=== PATIENT | male | born 1940 | race Caucasian/White ===

== ENCOUNTER 2017-05-03 12:05 | Inpatient (IN) ==
[2017-05-03] MEDS ORDERED: Ipratropium/Albuterol Neb 3 ML IH ONE (12:43)
--- NOTE | 2017-05-03 12:47 | Emergency Department Note ---
Disposition Clinical Impression: Dyspnea Qualifiers: Dyspnea type: unspecified Qualified Code(s): R06.00 - Dyspnea, unspecified Dementia Qualifiers: Dementia type: unspecified type Dementia behavioral disturbance: without behavioral disturbance Qualified Code(s): F03.90 - Unspecified dementia without behavioral disturbance Disposition: Admitted As Inpatient Condition: Fair [facility]errals: [facility] [Primary Care Provider] - Forms: ED Satisfaction Letter Time of Disposition: 15:15 SOB HPI - General Chief Complaint: ED Shortness of Breath/Dyspnea Stated Complaint: SOB Time Seen by Provider: 05/03/17 12:29 Source: patient, EMS Limitations: altered mental status Nursing Notes Reviewed: Yes Vital Signs Reviewed: Yes - History of Present Illness An elderly gentleman unclear of his exact age although he reports a birthday making him 77 years old who comes in with increasing confusion and inability to communicate effectively. Patient apparently lived with his girlfriend at the [place] and she says she is getting too much to handle. Here he has no localizing neurologic signs but has difficulty initiating his speech making intelligible conversation. Pt Subjective Complaint: shortness of breath Onset (ago): Just SENIOR SUSTAINABILITY ADVISOR Severity: mild, moderate Consistency/Duration: constant Improves with: nothing Worsens with: nothing Known history of: COPD Associated symptoms: Reports: denies other symptoms Treatment prior to arrival: none - Related Data Allergies Allergy/AdvReac Type Severity Reaction Status Date / Time metformin AdvReac See Verified 05/03/17 12:06 Comments Limitations: ROS unobtainable due to patients medical condition Past Medical History - Past Medical History Medical history: Reports: GERD, hyperlipidemia, hypertension Psychiatric history: Reports: depression - Social History Smoking Status: Unknown if ever smoked Smokeless Tobacco Status: No Alcohol use: Reports: unknown Drug use: Reports: unknown Physical Exam - General Limitations: altered mental status General appearance: alert, in no apparent distress - Head Head exam: atraumatic, normocephalic, normal inspection - Eye Eye exam: Present: normal appearance, PERRL, EOMI - ENT ENT exam: normal exam, normal oropharynx, mucous membranes moist - Neck Neck exam: Present: normal inspection, full ROM, trachea midline - Chest Chest inspection: Present: normal inspection, symmetric chest wall rise - Respiratory Respiratory exam: Present: normal lung sounds bilaterally - Cardiovascular Cardiovascular exam: Present: regular rate, normal rhythm, normal heart sounds - Abdominal Exam Abdominal exam: Present: soft, Non-Tender. Absent: tenderness, distention, guarding, rebound, rigidity - Extremities Exam Extremities exam: Present: normal inspection, full ROM. Absent: tenderness, pedal edema - Expanded Lower Extremity Exam Neurovascular/Tendon exam: Absent: motor deficit, sensory deficit, tendon deficit Gait: not tested/not observed - Back Exam Back exam: Present: normal inspection, full ROM. Absent: tenderness - Neurological Exam Neurological exam: Present: alert, other. Absent: motor sensory deficit - Psychiatric Psychiatric exam: Present: normal affect, normal mood - Skin Skin exam: Present: warm, dry, intact, normal color Course - Reevaluation(s) Reevaluation #1: 77-year-old comes in with the complaint of shortness of breath however the patient is unable to tell us anything he appears to have some significant dementia. Workup here is negative he doesn't appear safe to be discharged. Will be admitted for further evaluation social service technician consult and neurology consult. Time: 15:04 - Consultations Consultation #1: Discussed with , admit. Time: 15:05 Vital Signs Temperature 98.1 F 05/03/17 12:11 Pulse Rate 62 05/03/17 12:11 Respiratory Rate 20 05/03/17 12:11 Blood Pressure 112/62 05/03/17 12:11 O2 Sat by Pulse Oximetry 98 05/03/17 12:11 Temperature 98.1 F 05/03/17 12:11 Pulse Rate 62 05/03/17 14:25 Respiratory Rate 18 05/03/17 14:25 Blood Pressure 142/88 05/03/17 13:36 O2 Sat by Pulse Oximetry 97 05/03/17 14:25 Oxygen Delivery Oxygen Delivery Room Air Shortness of Breath/Dyspnea - Lab Data Result diagrams: 05/03/17 13:00 05/03/17 13:00 Lab Results 05/03/17 05/03/17 05/03/17 Range/Units 13:00 13:00 13:00 WBC 8.2 (4.3-11.1) K/mcL RBC 4.11 L (4.19-5.50) M/mcL Hgb 12.3 L (12.9-16.9) g/dL Hct 36.4 L (37.5-50.1) % MCV 88.6 (83.0-100.0) fL MCH 29.9 (28.0-33.3) pg MCHC 33.8 (31.6-35.5) g/dL RDW 15.2 H (11.5-14.5) % Plt Count 192 (140-400) K/mcL MPV 10.3 (9.4-12.4) fL Immature Gran % 0.2 (0-4) % Seg Neutrophils % 55.5 % Lymphocytes % 30.3 % Monocytes % 6.4 % Eosinophils % 6.6 % Basophils % 1.0 % Neutrophils # 4.6 (1.6-8.9) K/mcL Lymphocytes # 2.5 (0.6-4.6) K/mcL Monocytes # 0.5 (0.0-1.3) K/mcL Eosinophils # 0.5 (0.0-0.6) K/mcL Basophils # 0.1 (0.0-0.2) K/mcL Immature Plt Fraction 3.2 (1.1-6.1) % Sodium 136 (136-145) mEq/L Potassium 3.9 (3.5-4.5) mEq/L Chloride 105 (98-109) mEq/L Carbon Dioxide 24 (19-29) mEq/L BUN 22 (8-26) mg/dL Creatinine 1.28 H (0.72-1.25) mg/dL Est GFR ( Amer) > 60 (> 60) Est GFR (Non-Af Amer) 55 L (> 60) BUN/Creatinine Ratio 17 (6-26) Glucose 90 (70-99) mg/dL Calculated Osmolality 285 (280-300) Lactic Acid 1.0 (0.5-2.2) mmol/L Calcium 9.3 (8.6-10.8) mg/dL Troponin I (0-0.03) ng/mL B-Natriuretic Peptide (0-100) pg/mL 05/03/17 05/03/17 Range/Units 13:00 13:00 WBC (4.3-11.1) K/mcL RBC (4.19-5.50) M/mcL Hgb (12.9-16.9) g/dL Hct (37.5-50.1) % MCV (83.0-100.0) fL MCH (28.0-33.3) pg MCHC (31.6-35.5) g/dL RDW (11.5-14.5) % Plt Count (140-400) K/mcL MPV (9.4-12.4) fL Immature Gran % (0-4) % Seg Neutrophils % % Lymphocytes % % Monocytes % % Eosinophils % % Basophils % % Neutrophils # (1.6-8.9) K/mcL Lymphocytes # (0.6-4.6) K/mcL Monocytes # (0.0-1.3) K/mcL Eosinophils # (0.0-0.6) K/mcL Basophils # (0.0-0.2) K/mcL Immature Plt Fraction (1.1-6.1) % Sodium (136-145) mEq/L Potassium (3.5-4.5) mEq/L Chloride (98-109) mEq/L Carbon Dioxide (19-29) mEq/L BUN (8-26) mg/dL Creatinine (0.72-1.25) mg/dL Est GFR ( Amer) (> 60) Est GFR (Non-Af Amer) (> 60) BUN/Creatinine Ratio (6-26) Glucose (70-99) mg/dL Calculated Osmolality (280-300) Lactic Acid (0.5-2.2) mmol/L Calcium (8.6-10.8) mg/dL Troponin I 0.00 (0-0.03) ng/mL B-Natriuretic Peptide 82 (0-100) pg/mL - EKG Data EKG attestation: Yes I reviewed and interpreted this EKG. EKG shows normal: Reports: sinus rhythm Rate: Reports: tachycardia Rhythm: Reports: NSR Interpretation: Reports: no acute changes NIH Stroke Scale - Level of Consciousness LOC: Alert - LOC Questions LOC Questions: Answers both incorrectly - LOC Commands LOC Commands: Performs both incorrectly - Best Gaze Best Gaze: Normal - Visual Visual: No visual loss - Facial Palsy Facial Palsy: Normal - Motor Arms Motor Arm-Left: No drift for 10 seconds Motor Arm-Right: No drift for 10 seconds - Motor Legs Motor Leg-Left: No drift for 5 seconds Motor Leg-Right: No drift for 5 seconds - Limb Ataxia Limb Ataxia: Normal, No Ataxia - Sensory Sensory: Normal - Best Language Best Language: No aphasia - Dysarthria Dysarthria: Normal - Extinction and Inattention Extinction and Inattention: Normal - NIHSS Total Score NIHSS Total Score: 4
[2017-05-03 13:25] LABS: Basophils # 0.1 K/mcL (0.0-0.2); Eosinophils # 0.5 K/mcL (0.0-0.6); Eosinophils % 6.6 %; Hematocrit 36.4 % (37.5-50.1); Hemoglobin 12.3 g/dL (12.9-16.9); Immature Granulocytes % 0.2 % (0-4); Immature Platelets 3.2 % (1.1-6.1); Lymphocytes # 2.5 K/mcL (0.6-4.6); Lymphocytes % 30.3 %; Mean Corpuscular HGB Conc 33.8 g/dL (31.6-35.5); Mean Corpuscular Hemoglobin 29.9 pg (28.0-33.3); Mean Corpuscular Volume 88.6 fL (83.0-100.0); Mean Platelet Volume 10.3 fL (9.4-12.4); Monocytes # 0.5 K/mcL (0.0-1.3); Monocytes % 6.4 %; Neutrophils # 4.6 K/mcL (1.6-8.9); Platelet Count 192 K/mcL (140-400); Red Blood Count 4.11 M/mcL (4.19-5.50); Red Cell Distribution Width 15.2 % (11.5-14.5); Segmented Neutrophils % 55.5 %
[2017-05-03 13:33] LABS: BUN/Creatinine Ratio 17 (6-26); Blood Urea Nitrogen 22 mg/dL (8-26); Calcium 9.3 mg/dL (8.6-10.8); Carbon Dioxide 24 mEq/L (19-29); Chloride 105 mEq/L (98-109); Glucose 90 mg/dL (70-99); Osmolality,Calculated 285 (280-300); Potassium 3.9 mEq/L (3.5-4.5); Sodium 136 mEq/L (136-145); eGFR For African Americans > 60 (> 60); eGFR For Non-African Americans 55 (> 60)
[2017-05-03 15:39] LABS: Bilirubin,Urine Negative (Negative); Blood,Urine Negative (Negative); Clarity,Urine Clear (Clear); Color,Urine Yellow (Yellow); Glucose,Urine (UA) Normal (Normal); Ketones,Urine Negative (Negative); Leukocyte Esterase,Urine Negative (Negative); Nitrite,Urine Negative (Negative); PH,Urine 7.5 pH Units (5.0-8.0); Protein,Urine Negative (Neg-Trace); Urobilinogen,Urine Normal (Normal)
[2017-05-03] MEDS ORDERED: Naloxone 0.4 MG/ML INJ IVP PRN (16:13)
[2017-05-03] MEDS ORDERED: Acetaminophen 325 MG TABLET PO PRN (16:13)
--- NOTE | 2017-05-03 16:29 | Internal Med History&Physical ---
<Delia Griffiths J - Last Filed: 05/03/17 16:36> Date of Encounter: 05/03/17 Time of Encounter: 16:29 Assessment and Plan (1) Dyspnea Current visit: Yes Status: Acute With reported complaints of shortness of breath on morning of admission. Details unclear in no distress apparent. Chest x-ray with interstitial changes suggesting possible bronchiolitis, with superimposed COPD, or possible edema. No evidence of COPD exacerbation on exam adequately oxygenating on room air. No distress apparent. Afebrile, no elevated to WBC. Hold off on on ATB, steroids at this time. Chest CT without contrast to further evaluate. Qualifiers: Dyspnea type: unspecified Qualified Code(s): R06.00 - Dyspnea, unspecified (2) Dementia Current visit: Yes Status: Acute Per history. Baseline mental status unknown. Apparently lives with girlfriend who is full-time caregiver, and she is unable to care for patient due to worsening confusion. No family or significant other at bedside. Alert to self only, pleasantly confused. Head CT negative, UA negative. No obvious infectious or metabolic abnormalities. Suspect disease progression. Continue home Aricept, consult social work for likely SNF placement Qualifiers: Dementia type: unspecified type Dementia behavioral disturbance: without behavioral disturbance Qualified Code(s): F03.90 - Unspecified dementia without behavioral disturbance (3) COPD (chronic obstructive pulmonary disease) Current visit: Yes Status: Acute Per history. No evidence of exacerbation on exam. No indication for steroids or ATB. Continue home inhalers. Qualifiers: COPD type: unspecified COPD Qualified Code(s): J44.9 - Chronic obstructive pulmonary disease, unspecified (4) CAD (coronary artery disease) Current visit: Yes Status: Acute Per history. Asymptomatic, denies chest pain. Continue home ASA statin and beta kirstin. Qualifiers: Coronary Disease-Associated Artery/Lesion type: [place] artery [place] vs. transplanted heart: [place] heart Associated angina: without angina Qualified Code(s): I25.10 - Atherosclerotic heart disease of [place] coronary artery without angina pectoris (5) DVT prophylaxis Current visit: Yes Status: Acute Heparin Internal Medicine - H&P: HPI Chief complaint: shortness of breath Admitted From: Home Plans for Post Hospital Care: Transfer Alf Facility History of present illness: Mr. Galindo is a 77 year old male with past medical history CAD, COPD and dementia who presented to [facility] on 05/03/2017 with reported shortness of breath and increased confusion. He was admitted for further workup treatment and likely SNF placement. Information obtained from chart review in ED notes only as patient has severe dementia and is oriented to self only, no family her significant other at bedside. Per ED notes patient lives with girlfriend who is his caregiver and reportedly complained of shortness of breath this morning and therefore she called the EMS. He was taken to the [facility] and then subsequently transferred to [place]. Patient apparently is more confused and louise is unable to care for him. Unable to obtain review of systems or subjective information due to severe dementia Past Med Surg Social Fam HX - Past Medical History Medical history: GERD, hyperlipidemia, hypertension Psychiatric history: depression - Past Surgical History Surgical History: non-contributory (Unable to obtain past surgical history as patient has severe dementia, no family at bedside) - Social History Smoking Status: Unknown if ever smoked Smokeless Tobacco Status: No Alcohol use: unknown Drug use: unknown - Additional Family History Additional family history: Family history unknown as patient has severe dementia and no family at bedside Internal Medicine - H&P: Meds Aspirin Enteric Coated [Aspirin EC] 81 mg PO DAILY 05/03/17 [History] Atorvastatin [Lipitor] 40 mg PO HS 05/03/17 [History] Carbamide Peroxide [Ear Drops] 2 drop BOTH EARS DAILY PRN 05/03/17 [History] Carvedilol [Coreg] 6.25 mg PO BIDWM 05/03/17 [History] Donepezil [Aricept] 10 mg PO HS 05/03/17 [History] Ergocalciferol (VITAMIN D2) [Vitamin D2] 50,000 unit PO QWEEK 05/03/17 [History] Ipratropium/Albuterol Neb [Duoneb] 3 ml IH Q6H 05/03/17 [History] Ipratropium/Albuterol Sulfate [Combivent Respimat Inhal [place]] 1 puff IH QID [History] Omeprazole [PriLOSEC] 40 mg PO DAILY 05/03/17 [History] Psyllium Husk (with Sugar) [Konsyl Psyllium Fiber Packet] 3.4 gm PO DAILY PRN [History] Sertraline [Zoloft] 50 mg PO DAILY 05/03/17 [History] traZODone [TraZODone] 50 mg PO HS 05/03/17 [History] Allergies metformin Adverse Reaction (Verified 05/03/17 12:06) See Comments ROS unobtainable: due to mental status All Systems PM: A 10-system review of systems was performed and is negative for pertinent findings except as documented above in the HPI. - Constitutional Vitals: Temp Pulse Resp BP Pulse Ox 97.9 F 60 18 147/75 94 05/03/17 16:14 05/03/17 16:14 05/03/17 16:14 05/03/17 16:14 05/03/17 16:14 General appearance: Present: A&O X 1, no acute distress - Head Head exam: Present: atraumatic, normocephalic - Eye Eye exam: Present: PERRL, conjuntiva pink, sclera anicteric Pupils: Present: PERRL - Neck Neck exam general surgery: Present: supple, trachea midline. Absent: lymphadenopathy - Respiratory Respiratory exam: Present: CTAB. Absent: accessory muscle use, rales, rhonchi, wheezes - Cardiovascular Cardiovascular exam: Present: RRR, +S1, +S2. Absent: diastolic murmur, gallop, rubs, systolic murmur - GI/Abdominal GI/Abdominal exam: Present: normal bowel sounds, soft, no peritoneal signs. Absent: distended, tenderness - Extremities Exam Extremities exam: Present: warm, radial pulses palpable and symetrical. Absent : calf tenderness, cyanotic, pedal edema - Neurological Exam Neurological exam: Present: CN II-XII intact, oriented X3, no focal deficits. Absent: pronater drift, facial droop, speech deficit - Skin Skin exam: Present: dry, intact Internal Med - H&P Results - Labs CBC & Chem 7: 05/03/17 13:00 05/03/17 13:00 Labs: Urine 05/03/17 Range/Units 15:31 Urine Color Yellow (Yellow) Urine Clarity Clear (Clear) Urine pH 7.5 (5.0-8.0) pH Units Ur Specific [place] 1.010 (1.010-1.025) Urine Protein Negative (Neg-Trace) mg/dL Urine Glucose (UA) Normal (Normal) mg/dL <Domi Harding - Last Filed: 05/03/17 19:13> Date of Encounter: 05/03/17 Time of Encounter: 17:00 Internal Medicine - H&P: HPI History of present illness: Mr. Galindo is a 77 year old male All Systems PM: A 10-system review of systems was performed and is negative for pertinent findings except as documented above in the HPI. - Constitutional Vitals: Temp Pulse Resp BP Pulse Ox 97.9 F 60 18 147/75 94 05/03/17 16:14 05/03/17 16:14 05/03/17 16:14 05/03/17 16:14 05/03/17 16:14 Internal Med - H&P Results - Labs CBC & Chem 7: 05/03/17 13:00 05/03/17 13:00 Labs: Urine 05/03/17 Range/Units 15:31 Urine Color Yellow (Yellow) Urine Clarity Clear (Clear) Urine pH 7.5 (5.0-8.0) pH Units Ur Specific [place] 1.010 (1.010-1.025) Urine Protein Negative (Neg-Trace) mg/dL Urine Glucose (UA) Normal (Normal) mg/dL - Attending Attestation I examined this patient and my medical decision-making was reviewed with the nurse practitioner. I agree with the documented history of present illness, review of systems, past medical, surgical social and family histories and examination findings, disposition and treatment plan as described above except to any changes set forth below. Patient with history of COPD, coronary artery disease with possible history of dementia presenting with shortness of breath but has now improved. Continue bronchodilators as needed. Recommend outpatient follow-up for dementia. 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
[2017-05-03 20:18] LABS: ABG Base Excess 0.8 mEq/L (-2.0 to 3.0); ABG HCO3 21.9 mEQ/L (21-27); ABG Oxygen Saturation 99 % (95-98); ABG PCO2 25 mmHg (35-45); ABG PH 7.55 pH Units (7.32-7.45); ABG PO2 100 mmHg (85-104); ABG TCO2 22.7 mEq/L (20-26); Blood Gas FiO2 21 %
[2017-05-03] MEDS: Ipratropium/Albuterol Neb 3 ML IH SCH (21:22)
[2017-05-04] MEDS: Ipratropium/Albuterol Neb 3 ML IH SCH ×2 (03:55→10:38)
[2017-05-04 05:04] LABS: Basophils # 0.1 K/mcL (0.0-0.2); Basophils % 1.1 %; Eosinophils # 0.5 K/mcL (0.0-0.6); Eosinophils % 6.4 %; Hematocrit 38.1 % (37.5-50.1); Hemoglobin 12.6 g/dL (12.9-16.9); Immature Granulocytes % 0.4 % (0-4); Lymphocytes # 1.9 K/mcL (0.6-4.6); Lymphocytes % 25.5 %; Mean Corpuscular HGB Conc 33.1 g/dL (31.6-35.5); Mean Corpuscular Hemoglobin 29.3 pg (28.0-33.3); Mean Corpuscular Volume 88.6 fL (83.0-100.0); Monocytes # 0.6 K/mcL (0.0-1.3); Neutrophils # 4.3 K/mcL (1.6-8.9); Platelet Count 182 K/mcL (140-400); Red Cell Distribution Width 15.1 % (11.5-14.5); Segmented Neutrophils % 58.6 %
[2017-05-04 05:18] LABS: Alanine Aminotransferase 10 Units/L (0-55); Albumin 3.4 g/dL (3.5-5.0); Albumin/Globulin Ratio 0.9 (1.1-2.2); Alkaline Phosphatase 76 Units/L (38-126); Aspartate Amino Transferase 19 Units/L (5-34); BUN/Creatinine Ratio 16 (6-26); Bilirubin,Total 0.6 mg/dL (0.2-1.2); Blood Urea Nitrogen 20 mg/dL (8-26); Calcium 9.4 mg/dL (8.6-10.8); Carbon Dioxide 23 mEq/L (19-29); Chloride 106 mEq/L (98-109); Globulin 3.6 g/dL (2.4-3.5); Glucose 89 mg/dL (70-99); Osmolality,Calculated 286 (280-300); Potassium 3.7 mEq/L (3.5-4.5); Sodium 137 mEq/L (136-145); eGFR For African Americans > 60 (> 60); eGFR For Non-African Americans 55 (> 60)
[2017-05-04] MEDS: Aspirin Enteric Coated 81 MG Tablet PO SCH (09:22)
[2017-05-04] MEDS ORDERED: Ipratropium/Albuterol Neb 3 ML IH PRN (14:46)
--- NOTE | 2017-05-04 14:57 | Internal Med Progress Note ---
<Adán Espitia - Last Filed: 05/04/17 14:55> Date of Encounter: 05/04/17 Time of Encounter: 14:55 - Assessment and plan (1) Dementia Current Visit: Yes Status: Acute Assessment and plan: Baseline unknown patient is pleasantly confused at this time. Family was present but according to records the patient's caregiver feels that they can no longer care for him at home. Continue Aricept, per physical therapy and occupational therapy patient is a candidate for [place] [facility] so we will work with social work to place the patient upon discharge. Qualifiers: Dementia type: unspecified type Dementia behavioral disturbance: without behavioral disturbance Qualified Code(s): F03.90 - Unspecified dementia without behavioral disturbance (2) CAD (coronary artery disease) Current Visit: Yes Status: Acute Assessment and plan: Per records. Asymptomatic at this time. Continue home medications. Qualifiers: Coronary Disease-Associated Artery/Lesion type: [place] artery [place] vs. transplanted heart: [place] heart Associated angina: without angina Qualified Code(s): I25.10 - Atherosclerotic heart disease of [place] coronary artery without angina pectoris (3) COPD (chronic obstructive pulmonary disease) Current Visit: Yes Status: Acute Assessment and plan: Patient apparently had some shortness of breath upon presentation but this is resolved at this time. Continue home medications. Qualifiers: COPD type: unspecified COPD Qualified Code(s): J44.9 - Chronic obstructive pulmonary disease, unspecified (4) DVT prophylaxis Current Visit: Yes Status: Acute Assessment and plan: Heparin 5000 units subcutaneous twice a day. - Subjective Interval history: Patient seen and examined at bedside. Patient was wandering in the room when I entered and had difficulty responding to questions appropriately. Patient was pleasantly confused. Patient did not appear to be in any acute distress. Patient had no complaints at this time. - Constitutional Vitals: Temp Pulse Resp BP Pulse Ox 97.3 F L 56 18 137/62 94 05/04/17 11:32 05/04/17 11:32 05/04/17 11:32 05/04/17 11:32 05/04/17 11:32 General appearance: Present: A&O X 1, no acute distress - Respiratory Respiratory exam: Present: CTAB. Absent: rales, rhonchi, wheezes - Cardiovascular Cardiovascular exam: Present: RRR. Absent: gallop, rubs, systolic murmur - GI/Abdominal GI/Abdominal exam: Present: normal bowel sounds, soft. Absent: distended, tenderness - Extremities Exam Extremities exam: Present: warm. Absent: pedal edema, tenderness - Neurological Exam Neurological exam: Present: alert, altered, CN II-XII intact, no focal deficits. Absent: oriented X3 - Psychiatric Psychiatric exam: Present: normal affect, normal mood Internal Medicine: Result - Labs CBC & Chem 7: 05/04/17 03:49 05/04/17 03:49 Labs: Short CBC 05/04/17 Range/Units 03:49 WBC 7.4 (4.3-11.1) K/mcL Hgb 12.6 L (12.9-16.9) g/dL Hct 38.1 (37.5-50.1) % Plt Count 182 (140-400) K/mcL Neutrophils # 4.3 (1.6-8.9) K/mcL BMP 05/04/17 03:49 Sodium 137 Potassium 3.7 Chloride 106 Carbon Dioxide 23 BUN 20 Creatinine 1.28 H Glucose 89 Calcium 9.4 Liver Function 05/04/17 Range/Units 03:49 Total Bilirubin 0.6 (0.2-1.2) mg/dL AST 19 (5-34) Units/L ALT 10 (0-55) Units/L Alkaline Phosphatase 76 (38-126) Units/L Albumin 3.4 L (3.5-5.0) g/dL Urine 05/03/17 Range/Units 15:31 Urine Color Yellow (Yellow) Urine Clarity Clear (Clear) Urine pH 7.5 (5.0-8.0) pH Units Ur Specific [place] 1.010 (1.010-1.025) Urine Protein Negative (Neg-Trace) mg/dL Urine Glucose (UA) Normal (Normal) mg/dL - ABG Interpretation ABG results: ABG ABG pH 7.55 pH Units (7.32-7.45) H 05/03/17 20:08 ABG pCO2 25 mmHg (35-45) L 05/03/17 20:08 ABG pO2 100 mmHg (85-104) 05/03/17 20:08 ABG O2 Saturation 99 % (95-98) H 05/03/17 20:08 - Impressions Impressions Chest CT 06/21/17 16:16 IMPRESSION: Evidence of emphysema. Irregular peripheral opacities within the lung bases suggests mild interstitial fibrosis. D/ / Taylor Eaton Cha, MD / Taylor Eaton Cha, MD Interpreting Provider: Taylor Eaton Cha, MD Consult Discharge Plan - Plan [facility]errals: [facility] [Primary Care Provider] - <Dominic Livingston P - Last Filed: 05/04/17 15:32> Date of Encounter: 05/04/17 - Constitutional Vitals: Temp Pulse Resp BP Pulse Ox 97.3 F L 56 18 137/62 94 05/04/17 11:32 05/04/17 11:32 05/04/17 11:32 05/04/17 11:32 05/04/17 11:32 Internal Medicine: Result - Labs CBC & Chem 7: 05/04/17 03:49 05/04/17 03:49 Labs: Short CBC 05/04/17 Range/Units 03:49 WBC 7.4 (4.3-11.1) K/mcL Hgb 12.6 L (12.9-16.9) g/dL Hct 38.1 (37.5-50.1) % Plt Count 182 (140-400) K/mcL Neutrophils # 4.3 (1.6-8.9) K/mcL BMP 05/04/17 03:49 Sodium 137 Potassium 3.7 Chloride 106 Carbon Dioxide 23 BUN 20 Creatinine 1.28 H Glucose 89 Calcium 9.4 Liver Function 05/04/17 Range/Units 03:49 Total Bilirubin 0.6 (0.2-1.2) mg/dL AST 19 (5-34) Units/L ALT 10 (0-55) Units/L Alkaline Phosphatase 76 (38-126) Units/L Albumin 3.4 L (3.5-5.0) g/dL Urine 05/03/17 Range/Units 15:31 Urine Color Yellow (Yellow) Urine Clarity Clear (Clear) Urine pH 7.5 (5.0-8.0) pH Units Ur Specific [place] 1.010 (1.010-1.025) Urine Protein Negative (Neg-Trace) mg/dL Urine Glucose (UA) Normal (Normal) mg/dL - ABG Interpretation ABG results: ABG ABG pH 7.55 pH Units (7.32-7.45) H 05/03/17 20:08 ABG pCO2 25 mmHg (35-45) L 05/03/17 20:08 ABG pO2 100 mmHg (85-104) 05/03/17 20:08 ABG O2 Saturation 99 % (95-98) H 05/03/17 20:08 - Impressions Impressions Chest CT 05/03/17 16:16 IMPRESSION: Evidence of emphysema. Irregular peripheral opacities within the lung bases suggests mild interstitial fibrosis. D/ / Taylor Eaton Cha, MD / Taylor Eaton Cha, MD Interpreting Provider: Taylor Eaton Cha, MD - Attending Attestation I examined this patient and my medical decision-making was reviewed with the WATER/WASTEWATER ENGINEER/PA/Advanced Practice Nurse/Resident Physician. I agree with the documented findings, disposition and treatment plan as described except to the extent set forth below. ABG: alkalosis with low PCO2, need to find etiology renal function altered. close monitoring
--- NOTE | 2017-05-04 17:33 | Electrocardiograph Report ---
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
[2017-05-04] MEDS: *HR* Heparin 5,000 UNIT/ML VIAL SQ SCH (18:22)
[2017-05-05] MEDS: *HR* Heparin 5,000 UNIT/ML VIAL SQ SCH ×2 (05:42→17:45)
[2017-05-05 05:45] LABS: Basophils # 0.1 K/mcL (0.0-0.2); Eosinophils # 0.7 K/mcL (0.0-0.6); Eosinophils % 7.2 %; Hematocrit 40.6 % (37.5-50.1); Hemoglobin 13.7 g/dL (12.9-16.9); Immature Granulocytes % 0.2 % (0-4); Lymphocytes # 2.4 K/mcL (0.6-4.6); Mean Corpuscular HGB Conc 33.7 g/dL (31.6-35.5); Mean Corpuscular Hemoglobin 29.4 pg (28.0-33.3); Mean Corpuscular Volume 87.1 fL (83.0-100.0); Mean Platelet Volume 9.9 fL (9.4-12.4); Monocytes # 0.7 K/mcL (0.0-1.3); Neutrophils # 5.1 K/mcL (1.6-8.9); Platelet Count 209 K/mcL (140-400); Red Blood Count 4.66 M/mcL (4.19-5.50); Red Cell Distribution Width 15.2 % (11.5-14.5); Segmented Neutrophils % 56.6 %
[2017-05-05 05:56] LABS: BUN/Creatinine Ratio 16 (6-26); Blood Urea Nitrogen 22 mg/dL (8-26); Calcium 9.8 mg/dL (8.6-10.8); Carbon Dioxide 23 mEq/L (19-29); Chloride 105 mEq/L (98-109); Glucose 105 mg/dL (70-99); Magnesium 1.8 mg/dL (1.6-2.6); Osmolality,Calculated 288 (280-300); Sodium 137 mEq/L (136-145); eGFR For African Americans > 60 (> 60); eGFR For Non-African Americans 51 (> 60)
[2017-05-05] MEDS: Aspirin Enteric Coated 81 MG Tablet PO SCH (09:33)
--- NOTE | 2017-05-05 11:19 | Internal Med Progress Note ---
<DeniceAdán singletary - Last Filed: 05/05/17 11:17> Date of Encounter: 05/05/17 Time of Encounter: 11:18 - Assessment and plan (1) Dementia Current Visit: Yes Status: Acute Assessment and plan: Baseline unknown, patient is pleasantly confused at this time. Continue Aricept , per physical therapy and occupational therapy patient is a candidate for prison facility so we will work with social work to place the patient upon discharge. Qualifiers: Dementia type: unspecified type Dementia behavioral disturbance: without behavioral disturbance Qualified Code(s): F03.90 - Unspecified dementia without behavioral disturbance (2) Azotemia Current Visit: Yes Status: Acute Assessment and plan: Creatinine is elevated at 1.37 today with a GFR of 51. No previous records to review whether this is acute or chronic issue. We will check fractional excretion of sodium. We will hold off on retroperitoneal ultrasound as it does not appear that the patient will be able to follow directions enough for this this time. (3) CAD (coronary artery disease) Current Visit: Yes Status: Acute Assessment and plan: Per records. Asymptomatic at this time. Continue home medications. Qualifiers: Coronary Disease-Associated Artery/Lesion type: [place] artery [place] vs. transplanted heart: [place] heart Associated angina: without angina Qualified Code(s): I25.10 - Atherosclerotic heart disease of [place] coronary artery without angina pectoris (4) COPD (chronic obstructive pulmonary disease) Current Visit: Yes Status: Acute Assessment and plan: Patient apparently had some shortness of breath upon presentation but this is resolved at this time. Patient did have a respiratory alkalosis on presentation , likely due to hyperventilation. We will continue to monitor. Continue home medications. Qualifiers: COPD type: unspecified COPD Qualified Code(s): J44.9 - Chronic obstructive pulmonary disease, unspecified (5) DVT prophylaxis Current Visit: Yes Status: Acute Assessment and plan: Heparin 5000 units subcutaneous twice a day. - Subjective Interval history: Patient seen and examined at bedside. Patient is pleasantly confused. Patient did not appear to be in any acute distress. Patient had no complaints at this time. - Constitutional Vitals: Temp Pulse Resp BP Pulse Ox 98.1 F 72 15 135/77 96 05/05/17 04:43 05/05/17 04:43 05/05/17 04:43 05/05/17 04:43 05/05/17 04:43 General appearance: Present: A&O X 1, no acute distress - Respiratory Respiratory exam: Present: CTAB. Absent: rales, rhonchi, wheezes - Cardiovascular Cardiovascular exam: Present: RRR. Absent: gallop, rubs, systolic murmur - GI/Abdominal GI/Abdominal exam: Present: normal bowel sounds, soft. Absent: distended, tenderness - Extremities Exam Extremities exam: Present: warm. Absent: pedal edema, tenderness - Neurological Exam Neurological exam: Present: alert, altered, CN II-XII intact, no focal deficits. Absent: oriented X3 Internal Medicine: Result - Labs CBC & Chem 7: 05/05/17 05:20 05/05/17 05:20 Labs: Short CBC 05/05/17 Range/Units 05:20 WBC 9.0 (4.3-11.1) K/mcL Hgb 13.7 (12.9-16.9) g/dL Hct 40.6 (37.5-50.1) % Plt Count 209 (140-400) K/mcL Neutrophils # 5.1 (1.6-8.9) K/mcL BMP 05/05/17 05:20 Sodium 137 Potassium 4.0 Chloride 105 Carbon Dioxide 23 BUN 22 Creatinine 1.37 H Glucose 105 H Calcium 9.8 - ABG Interpretation ABG results: ABG ABG pH 7.55 pH Units (7.32-7.45) H 05/03/17 20:08 ABG pCO2 25 mmHg (35-45) L 05/03/17 20:08 ABG pO2 100 mmHg (85-104) 05/03/17 20:08 ABG O2 Saturation 99 % (95-98) H 05/03/17 20:08 Consult Discharge Plan - Plan [facility]errals: [facility] Care Provider[facility] - <Dominic Livingston P - Last Filed: 05/05/17 16:25> Date of Encounter: 05/05/17 - Constitutional Vitals: Temp Pulse Resp BP Pulse Ox 98.1 F 72 15 135/77 96 05/05/17 04:43 05/05/17 04:43 05/05/17 04:43 05/05/17 04:43 05/05/17 04:43 Internal Medicine: Result - Labs CBC & Chem 7: 05/05/17 05:20 05/05/17 05:20 Labs: Short CBC 05/05/17 Range/Units 05:20 WBC 9.0 (4.3-11.1) K/mcL Hgb 13.7 (12.9-16.9) g/dL Hct 40.6 (37.5-50.1) % Plt Count 209 (140-400) K/mcL Neutrophils # 5.1 (1.6-8.9) K/mcL BMP 05/05/17 05:20 Sodium 137 Potassium 4.0 Chloride 105 Carbon Dioxide 23 BUN 22 Creatinine 1.37 H Glucose 105 H Calcium 9.8 - ABG Interpretation ABG results: ABG ABG pH 7.55 pH Units (7.32-7.45) H 05/03/17 20:08 ABG pCO2 25 mmHg (35-45) L 05/03/17 20:08 ABG pO2 100 mmHg (85-104) 05/03/17 20:08 ABG O2 Saturation 99 % (95-98) H 05/03/17 20:08 - Attending Attestation I examined this patient and my medical decision-making was reviewed with the COOLER SERVICER/PA/Advanced Practice Nurse/Resident Physician. I agree with the documented findings, disposition and treatment plan as described except to the extent set forth below. home tomorrow with home health
[2017-05-06] MEDS: *HR* Heparin 5,000 UNIT/ML VIAL SQ SCH (06:24)
--- NOTE | 2017-05-06 07:45 | Discharge Summary ---
<Adán Espitia - Last Filed: 05/06/17 07:41> Date of Encounter: 05/06/17 Time of Encounter: 07:41 - Discharge Diagnosis (1) Dementia Priority: Primary Status: Chronic Qualifiers: Dementia type: unspecified type Dementia behavioral disturbance: without behavioral disturbance Qualified Code(s): F03.90 - Unspecified dementia without behavioral disturbance (2) Azotemia Priority: Primary Status: Chronic (3) CAD (coronary artery disease) Priority: Secondary Status: Chronic Qualifiers: Coronary Disease-Associated Artery/Lesion type: [place] artery [place] vs. transplanted heart: [place] heart Associated angina: without angina Qualified Code(s): I25.10 - Atherosclerotic heart disease of [place] coronary artery without angina pectoris (4) COPD (chronic obstructive pulmonary disease) Priority: Secondary Status: Chronic Qualifiers: COPD type: unspecified COPD Qualified Code(s): J44.9 - Chronic obstructive pulmonary disease, unspecified (5) DVT prophylaxis Priority: Secondary Status: Inactive - Discharge Medications Home Medications: Aspirin Enteric Coated [Aspirin EC] 81 mg PO DAILY 05/03/17 [History] Atorvastatin [Lipitor] 40 mg PO HS 05/03/17 [History] Carbamide Peroxide [Ear Drops] 2 drop BOTH EARS DAILY PRN 05/03/17 [History] Carvedilol [Coreg] 6.25 mg PO BIDWM 05/03/17 [History] Donepezil [Aricept] 10 mg PO HS 05/03/17 [History] Ergocalciferol (VITAMIN D2) [Vitamin D2] 50,000 unit PO QWEEK 05/03/17 [History] Ipratropium/Albuterol Neb [Duoneb] 3 ml IH Q6H 05/03/17 [History] Ipratropium/Albuterol Sulfate [Combivent Respimat Inhal [place]] 1 puff IH QID [History] Omeprazole [PriLOSEC] 40 mg PO DAILY 05/03/17 [History] Psyllium Husk (with Sugar) [Konsyl Psyllium Fiber Packet] 3.4 gm PO DAILY PRN [History] Sertraline [Zoloft] 50 mg PO DAILY 05/03/17 [History] traZODone [TraZODone] 50 mg PO HS 05/03/17 [History] Allergies/Adverse Reactions: Allergies metformin Adverse Reaction (Verified 05/03/17 12:06) See Comments Procedures/tests Complete & Pending: Procedures Performed prior 72 hours Category Date Time Status CT chest wo con [CT] Routine Cat Scan 05/03/17 16:16 Completed - Notes to Outpatient Provider Recommend further workup of the patient's kidney function if based on his previous lab results this is found to be in acute kidney injury. Date of admission: 05/03/17 15:20 [facility] care physician: [facility] Consults: 05/03/17 16:15 Consult to Physical Therapy [CONS] Routine Comment: Evaluate, develop and implement POC Reason for Consult: Lives with girlfrined, cannot care for him any onger. May need SNF Consult to Needle Board Repairer [CONS] Routine Reason for SW Consult: Ranjit lomeli need SNF placement 05/03/17 16:16 Consult to Occupational Therapy [CONS] Routine Comment: Evaluate, develop and implement POC Reason for Consult: Lives with girlfrined, cannot care for him any onger. May need SNF Discharging clinician: Adán Espitia Anticipated date of discharge: 05/06/17 - Patient Status Disposition: Home Health Service Condition: Fair Functional capacity at discharge: independent ambulation (With assistance) Overall status at discharge: patient is progressing back to baseline - Discharge Instructions Instructions: Chronic Obstructive Pulmonary Disease (DC) Follow [facility] With: [facility] [Primary Care Provider] - Additional Instructions: Recommend following up with your primary care physician in one week. Please resume your home medications. Please stay well hydrated. Please return for any new or worsening symptoms. - Diet and Activity Activity: increase activity as tolerated Diet: advance to your usual diet Interval History: Patient seen and examined at bedside. Patient is pleasantly confused. Patient has no complaints at this time. Hospital course: Mr. Galindo is a 77 year old male with history of dementia presented with shortness of breath. There is concern for the patient's caregiver's ability to care for the patient so the possibility of placement was explored by social work and unfortunately the patient did not qualify for ECF placement. The patient was monitored for several days. His labs revealed a mild increase in his creatinine. We have no old measurements to compare to sit is unknown if this is acute or chronic however I suspect that this is chronic. Patient is a FEna of 1.4% suggestive of intrinsic renal disease, likely chronic kidney disease. [facility]'s [facility] and we will suggest them that if this is an acute change that further workup will be pursued. Other markers of acute kidney injury including uremia and hyperkalemia were not present in this patient. We will discharge him home in stable condition with home health and recommend close follow [facility] with the [facility]. - Time Spent with Patient Total time spent providing and/or coordinating discharge services: - Constitutional Vitals: Temp Pulse Resp BP Pulse Ox 98.0 F 64 14 115/63 93 05/06/17 04:03 05/06/17 04:03 05/06/17 04:03 05/06/17 04:03 05/06/17 04:03 General appearance: Present: A&O X 1, no acute distress - Respiratory Respiratory exam: Present: CTAB. Absent: rales, rhonchi, wheezes - Cardiovascular Cardiovascular exam: Present: RRR. Absent: gallop, rubs, systolic murmur - GI/Abdominal GI/Abdominal exam: Present: normal bowel sounds, soft. Absent: distended, tenderness - Extremities Exam Extremities exam: Present: warm. Absent: pedal edema, tenderness - Neurological Exam Neurological exam: Present: alert, altered, CN II-XII intact, no focal deficits. Absent: oriented X3 <Yara,Dominic P - Last Filed: 05/06/17 15:16> Date of Encounter: 05/06/17 Procedures/tests Complete & Pending: Procedures Performed prior 72 hours Category Date Time Status CT chest wo con [CT] Routine Cat Scan 05/03/17 16:16 Completed Date of admission: 05/03/17 15:20 Primary care physician: [facility] Consults: 05/03/17 16:15 Consult to Physical Therapy [CONS] Routine Comment: Evaluate, develop and implement POC Reason for Consult: Lives with girlfrined, cannot care for him any onger. May need SNF Consult to Needle Board Repairer [CONS] Routine Reason for SW Consult: Ranjit lomeli need SNF placement 05/03/17 16:16 Consult to Occupational Therapy [CONS] Routine Comment: Evaluate, develop and implement POC Reason for Consult: Lives with girlfrined, cannot care for him any onger. May need SNF Hospital course: Mr. Galindo is a 77 year old male - Time Spent with Patient Total time spent providing and/or coordinating discharge services: - Constitutional Vitals: Temp Pulse Resp BP Pulse Ox 97.4 F L 73 14 123/70 91 05/06/17 10:23 05/06/17 10:23 05/06/17 10:23 05/06/17 10:23 05/06/17 10:23 - Attending Attestation I examined this patient and my medical decision-making was reviewed with the CUT PRESS OPERATOR/PA/Advanced Practice Nurse/Resident Physician. I agree with the documented findings, disposition and treatment plan as described except to the extent set forth below.
--- NOTE | 2017-05-06 07:49 | Physician Discharge Referral ---
<Adán Espitia - Last Filed: 05/06/17 07:48> Home Health/Hosp Referral Info Transfer to: Home Health Attending Provider: Dominic Livingston Provider in Charge Post Discharge: PCP - Diagnosis (1) Dementia Priority: Primary Status: Chronic (2) Azotemia Priority: Primary Status: Chronic (3) CAD (coronary artery disease) Priority: Secondary Status: Chronic (4) COPD (chronic obstructive pulmonary disease) Priority: Secondary Status: Chronic (5) DVT prophylaxis Priority: Secondary Status: Inactive - Respiratory Orders None Smoking Cessation: Smoking cessation has been advised. For more information, call the [place] Tobacco Quit Line at 2-279-KPBZ-NOW. - Diet/Nutrition Diet/Nutrition Orders: Mechanical Soft - Activity Activity Orders: Up ad analisa (with assist) - Services Needed Following services are medically necessary services: Nursing, Home Health Aide, Physical Therapy, Occupational Therapy, Med Social Work - Transfer Medications Home Medications: Aspirin Enteric Coated [Aspirin EC] 81 mg PO DAILY 05/03/17 [History] Atorvastatin [Lipitor] 40 mg PO HS 05/03/17 [History] Carbamide Peroxide [Ear Drops] 2 drop BOTH EARS DAILY PRN 05/03/17 [History] Carvedilol [Coreg] 6.25 mg PO BIDWM 05/03/17 [History] Donepezil [Aricept] 10 mg PO HS 05/03/17 [History] Ergocalciferol (VITAMIN D2) [Vitamin D2] 50,000 unit PO QWEEK 05/03/17 [History] Ipratropium/Albuterol Neb [Duoneb] 3 ml IH Q6H 05/03/17 [History] Ipratropium/Albuterol Sulfate [Combivent Respimat Inhal [place]] 1 puff IH QID [History] Omeprazole [PriLOSEC] 40 mg PO DAILY 05/03/17 [History] Psyllium Husk (with Sugar) [Konsyl Psyllium Fiber Packet] 3.4 gm PO DAILY PRN [History] Sertraline [Zoloft] 50 mg PO DAILY 05/03/17 [History] traZODone [TraZODone] 50 mg PO HS 05/03/17 [History] Allergies/Adverse Reactions: Allergies metformin Adverse Reaction (Verified 05/03/17 12:06) See Comments Certification: Further, I certify that my clinical findings support that this patient is homebound (i.e. absences from home require considerable and taxing effort and are for medical reasons or adventism services or infrequently or short duration when for other reasons) because: Homebound Reason: Patient requires assistance of a person or device to safely leave home, Altered mental status requiring supervision when leaving home Attestation: My signature below is to certify that this patient is under my care and that I, or nurse practitioner, or a physician's advertising assistant manager working with me, has a face-to -face encounter with this patient. <Dominic Livingston P - Last Filed: 05/06/17 15:16> - Respiratory Orders Smoking Cessation: Smoking cessation has been advised. For more information, call the [place] Tobacco Quit Line at 1-986-GURO-NOW. Certification: Further, I certify that my clinical findings support that this patient is homebound (i.e. absences from home require considerable and taxing effort and are for medical reasons or adventism services or infrequently or short duration when for other reasons) because: Attestation: My signature below is to certify that this patient is under my care and that I, or nurse practitioner, or a physician's advertising assistant manager working with me, has a face-to -face encounter with this patient.
[2017-05-06] MEDS: Aspirin Enteric Coated 81 MG Tablet PO SCH (08:38)
[2017-05-06 10:24] VITALS: BP 123/70
== END 2017-05-06 15:00 | disposition home health service (06) | DRG 204 ==
LOC: EMEROO 12:05 → 3BNU 15:20
PROVIDERS: ADMIT Internal Medicine; ATTEND Registered Nurse